=== PATIENT | female | born 1990 | race Caucasian/White ===

== ENCOUNTER 2017-10-24 23:37 | Emergency (ER) | payer OTHER ==
[2017-10-24 23:55] VITALS: BP 106/71
--- NOTE | 2017-10-25 01:04 | ER Document Report ---
ED Medical Screen (RME) - General Chief Complaint: Laceration Stated Complaint: CHIN LACERATION Time Seen by Provider: 10/25/17 01:03 Mode of Arrival: Wheelchair Information source: Patient Notes: 26-year-old female presented to ED for complaint of laceration and broken teeth. She states she was home drink and had about 5 shots of saline Rigo when she fell over landing on her face causing a laceration to her chin. She is alert and oriented and speaking in full sentences at this time. I have greeted and performed a rapid initial assessment of this patient. A comprehensive ED assessment and evaluation of the patient, analysis of test results and completion of medical decision making process will be conducted by an additional ED providers. TRAVEL OUTSIDE OF THE [place] IN LAST 30 DAYS: No - Related Data Allergies/Adverse Reactions: No Known Allergies Allergy (Verified 10/24/17 23:41) Physical Exam - Vital signs Vitals: Temp Pulse Resp BP Pulse Ox 98.1 F 91 14 106/71 96 10/24/17 23:55 10/24/17 23:55 10/24/17 23:55 10/24/17 23:55 10/24/17 23:55 Course - Vital Signs Vital signs: Temp Pulse Resp BP Pulse Ox 98.1 F 91 14 106/71 96 10/24/17 23:55 10/24/17 23:55 10/24/17 23:55 10/24/17 23:55 10/24/17 23:55
[2017-10-25] MEDS ORDERED: LIDOCAINE 1% INJ-PF (10 MG/ML) 30 ML SDV INJ ONE (02:20)
--- NOTE | 2017-10-25 02:21 | ER Document Report ---
HPI - HPI Pain Level: 4 Context: Patient is a 26-year-old female who presents with laceration to her chin. Patient states she tripped and fell at home and cut her chin on the side of their mantle. She denies any direct trauma to her chin, any pain in her jaw, pain with range of motion. She states that she has been able to chew without any difficulty and denies any pain with swallowing. She denies any dental fractures. States her tetanus is up-to-date within the past 5 years. Denies any direct head trauma, LOC Past Medical History - General Information source: Patient - Social History Smoking Status: Smoker,Current Status Unk Family History: Reviewed & Not Pertinent Vertical Provider Document - CONSTITUTIONAL Agree With Documented VS: Yes Notes: PHYSICAL EXAM GENERAL: Alert, interacts well. HEAD: Normocephalic, atraumatic. EYES: Pupils equal, round, and reactive to light. Extraocular movements intact. ENT: Oral mucosa moist, tongue midline. No dental fracutres, tenderness along mandible NECK: Full range of motion. Supple. Trachea midline. NEUROLOGICAL: Alert and oriented x4. Normal speech. PSYCH: Normal affect, normal mood. SKIN: Warm, dry, normal turgor. 2cm lac chin without bleeding - INFECTION CONTROL TRAVEL OUTSIDE OF THE [place] IN LAST 30 DAYS: No Course - Re-evaluation Re-evalutation: 10/25/17 02:43 Patient is a 26-year-old female who is in a stable, no acute distress afebrile. Benign physical exam beside laceration or concern for underlying mandible fracture. Wound was irrigated and closed primarily. Patient given strict return precautions, wound care and follow-up instructions. Patient agrees to plan stable for discharge home - Vital Signs Vital signs: Temp Pulse Resp BP Pulse Ox 98.1 F 91 14 106/71 96 10/24/17 23:55 10/24/17 23:55 10/24/17 23:55 10/24/17 23:55 10/24/17 23:55 Procedures - Laceration/Wound Repair Face Wound length (cm): 3 Wound's Depth, Shape: Linear Laceration pre-procedure: Sterile PPE donned Anesthetic type: 1% Lidocaine Volume Anesthetic (mLs): 5 Wound explored: Clean Irrigated w/ Saline (mLs): 50 Wound Repaired With: Sutures Suture Size/Type: 6:0, Nylon Number of Sutures: 7 Layer Closure?: No Complications: No Discharge - Discharge Clinical Impression: Laceration Condition: Good Disposition: HOME, SELF-CARE Additional Instructions: LACERATION CARE: Your laceration has been sutured to keep the skin edges aligned during healing. The time of suture removal depends on the nature and location of your cut. Please follow the care instructions the doctor has outlined for you and return for further care, according to the schedule you've been given. Keep the wound and dressing clean. Unless you were told otherwise, you may shower daily, blotting the wound dry with a clean, unused towel. At other times, If the dressing gets wet or blood soaked, remove it and blot the wound dry, then reapply a new dressing. Unless you were instructed otherwise, dressings should be changed at least daily. If any signs of infection occur (swelling, redness, drainage, increasing tenderness, red streaks, tender lumps in the armpit or groin above the laceration, or fever), see the doctor immediately. SOAP CLEANSING: Gently wash the wound daily using a mild soap (like Ivory, Phisoderm, Neutrogena). Use warm water, rubbing gently until all debris, ooze, and crusting have been washed from the wound. Allow to dry briefly (about 10 minutes) after cleaning. Repeat this cleansing at least three times a day for the first two days and then once or twice a day. ANTIBIOTIC OINTMENT PROTECTION: Your wounds are such that dressing them is not practical or optional. After cleansing, you should apply a thin coating of antibiotic ointment ( Bacitracin, not Neosporin) to the wounds at least three times daily. This lessens infection risk, and may decrease the amount of scarring. Use a q-tip or dull butter knife, not your finger, to apply this ointment. Any debris or ooze which builds up in the ointment should be gently rubbed off with a sterile gauze pad. Harder crusting may need to be gently scrubbed off with a clean wash cloth with soap and warm water, perhaps applying a warm, wet wash cloth to the wound for ten minutes first. Development of redness, severe itching, or blistering may mean allergy to the ointment. See the doctor. FOLLOW-UP CARE: Your sutures should be removed in 3-5 days. To facilitate a timely removal of your sutures, you may return to the Emergency Department at [facility]. You do not need to call for an appointment, but the best time to come in for suture removal is early in the morning. If you have been referred to another physician for follow-up care, call that physicians office for an appointment as you were instructed. If you experience a significant change in your laceration, or if you are concerned there may be an infection (swelling, redness, drainage, increasing tenderness, red streaks, tender lumps in the armpit or groin above the laceration, or fever) , return to the Emergency Department immediately re-evaluation.
[2017-10-25] MEDS ORDERED: LIDOCAINE 1% INJ-PF (10 MG/ML) 30 ML SDV ONE (02:23)
== END 2017-10-25 02:53 | disposition home or self-care (01) ==
LOC: ER 23:37
DX: S01.81XA Laceration without foreign body of other part of head, initial encounter (principal); W01.198A Fall on same level from slipping, tripping and stumbling with subsequent striking against other object, initial encounter; Y92.009 Unspecified place in unspecified non-institutional (private) residence as the place of occurrence of the external cause
CPT/HCPCS: 99282

== ENCOUNTER 2017-10-29 10:23 | Emergency (ER) | payer OTHER ==
[2017-10-29 10:29] VITALS: BP 112/64
--- NOTE | 2017-10-29 11:09 | ER Document Report ---
ED Suture/Wound Recheck - General Chief Complaint: Suture Removal Stated Complaint: SUTURE REMOVAL Mode of Arrival: Ambulatory Information source: Patient Notes: Patient is a 26-year-old female who presents to the ER today for suture removal of 6 sutures to the chin that she had placed 1 week ago, 7 days. Patient denies any redness, drainage, fevers or chills. TRAVEL OUTSIDE OF THE [place] IN LAST 30 DAYS: No - Related Data Allergies/Adverse Reactions: No Known Allergies Allergy (Verified 10/24/17 23:41) Past Medical History - General Information source: Patient - Social History Smoking Status: Never Smoker Chew tobacco use (# tins/day): No Frequency of alcohol use: None Drug Abuse: None Family History: Reviewed & Not Pertinent Patient has suicidal ideation: No Patient has homicidal ideation: No Renal/ Medical History: Denies: Hx Peritoneal Dialysis Review of Systems - Review of Systems Constitutional: No symptoms reported EENT: No symptoms reported Cardiovascular: No symptoms reported Respiratory: No symptoms reported Gastrointestinal: No symptoms reported Genitourinary: No symptoms reported Female Genitourinary: No symptoms reported Musculoskeletal: No symptoms reported Skin: See HPI Hematologic/Lymphatic: No symptoms reported Neurological/Psychological: No symptoms reported Physical Exam - Vital signs Vitals: Temp Pulse Resp BP Pulse Ox 98.6 F 87 18 112/64 98 10/29/17 10:28 10/29/17 10:28 10/29/17 10:28 10/29/17 10:28 10/29/17 10:28 - Notes Notes: PHYSICAL EXAMINATION: GENERAL: Well-appearing and in no acute distress. HEAD: Atraumatic, normocephalic. EYES: Pupils equal round and reactive to light, extraocular movements intact, sclera anicteric, conjunctiva are normal. NECK: Normal range of motion, supple without lymphadenopathy LUNGS: CTAB and equal. No wheezes rales or rhonchi. HEART: Regular rate and rhythm without murmurs EXTREMITIES: Normal range of motion, no pitting edema. No cyanosis. NEUROLOGICAL: Cranial nerves grossly intact. Normal sensory/motor exams. PSYCH: Normal mood, normal affect. SKIN: Warm, Dry, normal turgor, 6 sutures to right chin, no erythema or drainage , well healed Course - Re-evaluation Re-evalutation: 10/29/17 11:10 sutures were removed successfully - Vital Signs Vital signs: Temp Pulse Resp BP Pulse Ox 98.6 F 87 18 112/64 98 10/29/17 10:28 10/29/17 10:28 10/29/17 10:28 10/29/17 10:28 10/29/17 10:28 Discharge - Discharge Clinical Impression: Visit for suture removal Condition: Stable Disposition: HOME, SELF-CARE Additional Instructions: Return immediately for any new or worsening symptoms. Follow up with primary care provider, call tomorrow to make followup appointment.
== END 2017-10-29 11:06 | disposition home or self-care (01) ==
LOC: ER 10:23
DX: Z48.02 Encounter for removal of sutures (principal)